=== PATIENT | female | born 2000 | race Caucasian/White ===

== ENCOUNTER 2022-06-09 00:50 | Observation (INO) ==
[2022-06-09] MEDS ORDERED: ADENOSINE 6 MG/2 ML VIAL ONE (01:05)
[2022-06-09] MEDS ORDERED: DILTIAZEM 25 MG/5 ML VIAL IV ONE (01:15)
[2022-06-09] MEDS ORDERED: ADENOSINE 6 MG/2 ML VIAL IV STA ×2 (01:16→01:17)
[2022-06-09] MEDS ORDERED: SODIUM CHLORIDE 0.9% 1,000 ML IV STA ×2 (01:17→01:54)
[2022-06-09 01:21] LABS: Basophils % 0.3 % (0.0-0.8); Eosinophils # 0.2 10*3/uL (0.0-0.87); Eosinophils % 1.5 % (0.00-10.9); Hematocrit 38.6 VOL% (35.7-47.0); Hemoglobin 12.8 GM/DL (12.0-16.0); Immature Granulocytes % 0.6 %; Immature Granulocytes Absolute 0.07 #; Lymphocytes # 0.9 10*3/uL (1.4-4.0); Lymphocytes % 7.6 % (21.3-54.2); Mean Corpuscular HGB Conc 33.2 GM/DL (32-36); Mean Platelet Volume 10.3 FL (9.6-12.0); Monocytes # 0.8 10*3/uL (0.11-0.8); Monocytes % 7.2 % (1.7-12.7); Neutrophils % 82.8 % (38.7-73.9); Platelet Count 397 T/CUMM (130-400); Red Blood Count 4.49 MC/CUMM (3.8-5.5); Red Cell Distribution Width 13.8 % (9.3-17.3); White Blood Count 11.5 T/CUMM (4-12)
[2022-06-09] MEDS ORDERED: DILTIAZEM 25 MG/5 ML VIAL IV STA ×2 (01:23→03:24)
[2022-06-09] MEDS ORDERED: PANTOPRAZOLE 40 MG VIAL IV STA (01:24)
[2022-06-09] MEDS ORDERED: METOCLOPRAMIDE 10 MG/2 ML VIAL IV STA (01:24)
[2022-06-09 01:31] LABS: PT Patient Result 11.2 SECS (10.1-12.1); Partial Thromboplastin Time 29.6 SECS (23.7-32.9)
[2022-06-09 01:39] LABS: Albumin 3.6 G/DL (3.4-5.0); Bilirubin,Total 0.5 MG/DL (0.20-1.00); Calcium 8.9 MG/DL (8.5-10.1); Osmolality,Calculated 279.5 MOS/KG (273-304); Potassium 3.9 MMOL/L (3.5-5.1); Total Protein 6.6 G/DL (6.4-8.2)
[2022-06-09] MEDS ORDERED: MAGNESIUM SULF RIDER 2 GM/50 ML PREMIX IV STA (01:42)
[2022-06-09] MEDS ORDERED: PROMETHAZINE INJ 25 MG in SODIUM CHLORIDE 0.9% 50 ML IV STA (02:48)
[2022-06-09] MEDS ORDERED: PROMETHAZINE 25 MG/1 ML VIAL ONE (02:50)
[2022-06-09] MEDS ORDERED: PROMETHAZINE 25 MG/1 ML VIAL IM STA (02:55)
[2022-06-09] MEDS: METOPROLOL SUCCINATE XL 25 MG TABLET PO SCH ×2 (04:00→11:00)
[2022-06-09] MEDS: LACTATED RINGERS 1,000 ML IV SCH ×2 (04:00→15:48)
[2022-06-09 04:32] LABS: Bilirubin,Urine Negative (Negative); Blood, Urine Negative (Negative); Glucose,Urine (UA) Negative (Negative); Ketones,Urine 5 mg/dL (Negative); Mucus,Urine Occasional /LPF (Occasional); Nitrite,Urine Negative (Negative); Protein,Urine 30 mg/dL (Negative); RBC,Urine <1 /HPF (0-4); Squamous Epithelial Cell,Urine Occasional /HPF (0-10); Urine Appearance CLEAR (Clear); Urine Color Yellow (Yellow); Urine Specific Gravity 1.021 (1.001-1.035); Urine Urobilinogen < 2.0 eU/dL (<2.0)
[2022-06-09 04:34] LABS: Barbiturates Screen,Urine Negative (Negative); Benzodiazepines Screen,Urine Negative (Negative); Cannabinoid Screen,Urine Negative (Negative); Opiate Screen,Urine Negative (Negative); Phencyclidine Screen,Urine Negative (Negative)
[2022-06-09] MEDS ORDERED: DILTIAZEM 25 MG/5 ML VIAL IV PRN (04:38)
[2022-06-09] MEDS ORDERED: PROMETHAZINE INJ 12.5 MG in SODIUM CHLORIDE 0.9% 50 ML IV ONE (07:50)
[2022-06-09] MEDS ORDERED: DICYCLOMINE 20 MG TABLET PO SCH (09:00)
[2022-06-09] MEDS ORDERED: METOPROLOL SUCCINATE XL 25 MG TABLET PO SCH (09:00)
[2022-06-09] MEDS ORDERED: PANTOPRAZOLE 40 MG TABLET PO SCH (09:00)
[2022-06-09] MEDS: DOCUSATE SODIUM 100 MG CAPSULE PO SCH ×2 (11:00→21:46)
[2022-06-09] MEDS: METOCLOPRAMIDE 10 MG/2 ML VIAL IV SCH ×2 (11:24→18:06)
[2022-06-09] MEDS: ESCITALOPRAM 10 MG TABLET PO SCH (11:26)
[2022-06-09] MEDS: OLMESARTAN 5 MG TABLET PO SCH (11:26)
[2022-06-09] MEDS: ACETAMINOPHEN 325 MG TABLET PO PRN ×3 (11:26→21:47)
[2022-06-09] MEDS: FAMOTIDINE 20 MG TABLET PO SCH ×2 (11:26→21:46)
[2022-06-09] MEDS: OSELTAMIVIR 75 MG CAPSULE PO SCH ×2 (11:27→21:46)
[2022-06-09] MEDS ORDERED: DILTIAZEM CD 120 MG CAPSULE PO ONE (16:26)
[2022-06-09] MEDS: PROMETHAZINE INJ 12.5 MG in SODIUM CHLORIDE 0.9% 50 ML IV PRN (18:07)
[2022-06-09] MEDS ORDERED: ARIPiprazole 5 MG TABLET PO SCH (21:00)
[2022-06-09] MEDS: GABAPENTIN 300 MG CAPSULE PO SCH (21:46)
[2022-06-09] MEDS: PANTOPRAZOLE 40 MG VIAL IV SCH (21:46)
[2022-06-09] MEDS: ENOXAPARIN 40 MG/0.4 ML SYRINGE SUBCUT SCH (21:46)
[2022-06-10] MEDS: LACTATED RINGERS 1,000 ML IV SCH ×2 (01:14→10:48)
[2022-06-10] MEDS: METOCLOPRAMIDE 10 MG/2 ML VIAL IV SCH ×5 (01:19→23:50)
[2022-06-10] MEDS: PROMETHAZINE INJ 12.5 MG in SODIUM CHLORIDE 0.9% 50 ML IV PRN (04:50)
[2022-06-10] MEDS: ACETAMINOPHEN 325 MG TABLET PO PRN (06:22)
[2022-06-10 08:38] LABS: Calcium 7.7 MG/DL (8.5-10.1); Osmolality,Calculated 273.8 MOS/KG (273-304); Potassium 3.6 MMOL/L (3.5-5.1)
[2022-06-10] MEDS ORDERED: DILTIAZEM CD 120 MG CAPSULE PO SCH (09:00)
[2022-06-10] MEDS: OLMESARTAN 5 MG TABLET PO SCH (10:03)
[2022-06-10] MEDS: DOCUSATE SODIUM 100 MG CAPSULE PO SCH ×2 (10:03→20:59)
[2022-06-10] MEDS: ESCITALOPRAM 10 MG TABLET PO SCH (10:03)
[2022-06-10] MEDS: DILTIAZEM CD 180 MG CAPSULE PO SCH (10:04)
[2022-06-10] MEDS: OSELTAMIVIR 75 MG CAPSULE PO SCH ×2 (10:04→20:59)
[2022-06-10] MEDS: PANTOPRAZOLE 40 MG VIAL IV SCH ×2 (10:48→20:58)
[2022-06-10] MEDS: FAMOTIDINE 20 MG TABLET PO SCH (10:48)
[2022-06-10] MEDS: ENOXAPARIN 40 MG/0.4 ML SYRINGE SUBCUT SCH (20:59)
[2022-06-10] MEDS: GABAPENTIN 300 MG CAPSULE PO SCH (20:59)
[2022-06-11] MEDS: METOCLOPRAMIDE 10 MG/2 ML VIAL IV SCH ×2 (05:52→11:45)
[2022-06-11] MEDS ORDERED: Dulaglutide [Trulicity] 0.75 mg/0.5 mL Pen Injector SUBCUT SCH (09:00)
[2022-06-11] MEDS: DILTIAZEM CD 180 MG CAPSULE PO SCH (09:33)
[2022-06-11] MEDS: DOCUSATE SODIUM 100 MG CAPSULE PO SCH (09:33)
[2022-06-11] MEDS: OSELTAMIVIR 75 MG CAPSULE PO SCH (09:33)
[2022-06-11] MEDS: ESCITALOPRAM 10 MG TABLET PO SCH (09:34)
[2022-06-11] MEDS: OLMESARTAN 5 MG TABLET PO SCH (09:39)
[2022-06-11] MEDS: PANTOPRAZOLE 40 MG VIAL IV SCH (09:40)
[2022-06-11 13:34] VITALS: BP 136/84
== END 2022-06-11 14:38 | disposition home or self-care (01) ==
LOC: N.ED 00:50 → N.EDINP 00:50 → N.TELEN 04:57
PROVIDERS: ADMIT Internal Medicine; ATTEND Internal Medicine